=== PATIENT | male | born 1960 | race Caucasian/White ===

== ENCOUNTER → 2017-05-16 | Outpatient (CLI) | payer OTHER ==
[2017-05-16 13:50] LABS: Anion Gap 12 mmol/L; Blood Urea Nitrogen 22 mg/dL (9-20); Carbon Dioxide 28 mmol/L (22-30); Chloride 102 mmol/L (98-107); Glucose 94 mg/dL (74-99); Potassium 4.9 mmol/L (3.5-5.1); Sodium 142 mmol/L (137-145)
[2017-05-16 21:25] LABS: Hemoglobin A1C 6.1 % (4.0-6.0)
== END | disposition home or self-care (01) ==
LOC: LABWHC1 12:59
PROVIDERS: ATTEND Internal Medicine
DX: E11.9 Type 2 diabetes mellitus without complications (principal)
CPT/HCPCS: 36415; 80048; 83036

== ENCOUNTER → 2022-06-05 | Outpatient (CLI) | payer OTHER ==
--- NOTE | 2022-06-08 17:59 | MR ---
EXAM: MR Right Upper Extremity Without Intravenous Contrast, Wrist CLINICAL HISTORY: ITS.REASON MRI Reason: M87.039, M25.531 TECHNIQUE: Multiplanar magnetic resonance images of the right wrist without intravenous contrast. COMPARISON: No relevant prior studies available. FINDINGS: There is a full-thickness tear of the central articular disc the triangle fibrocartilage complex. The peripheral TFCC attachments appear intact. Dorsal and volar distal radioulnar ligaments appear intact. There is a communicating effusion of the radiocarpal and distal radioulnar joints. There is a complete tear of the scapholunate interosseous ligament with widening of the interval measuring 8.7 mm. There is proximal migration of the capitate. There is osteoarthritis of the radioscaphoid, radiolunate, and [id number] articulations, consistent with stage IV scapholunate advanced collapse. Subchondral cystic changes and marrow edema are noted within the distal radius, scaphoid, lunate, and capitate. Lunotriquetral ligament is intact. There is mild osteoarthritis of the scaphoid-trapezium articulation. There is no acute fracture or dislocation. There is no evidence of septic arthritis or acute osteomyelitis. There is an effusion of the pisotriquetral joint, with multiloculated 17 mm ganglion cyst at the volar-ulnar aspect of the joint space. Flexor tendons are intact, without tendinosis. There is no radial or ulnar bursitis. Flexor retinaculum is intact. Median nerve appears normal. Extensor tendons are intact. There is no extensor compartment tenosynovitis. Muscles appear unremarkable. IMPRESSION: 1. Complete tear of the scapholunate ligament with widening of the interval, proximal migration of the capitate, and radiocarpal/intercarpal degenerative changes, consistent with stage IV scapholunate advanced collapse. 2. Full-thickness tear of the central articular disc of the triangular fibrocartilage complex.
== END | disposition home or self-care (01) ==
LOC: RADMRIMAIN 14:43
PROVIDERS: ATTEND Orthopaedic Surgery
DX: S63.592A Other specified sprain of left wrist, initial encounter (principal); M87.039 Idiopathic aseptic necrosis of unspecified carpus; M25.531 Pain in right wrist